=== PATIENT | female | born 1980 | race Caucasian/White ===

== ENCOUNTER 2023-04-26 09:10 | Outpatient (OUT) | payer OTHER, SELFPAY ==
--- NOTE | 2023-04-26 09:18 | MM_ITS ---
Patient Name: ELIZABETH CHAMBERLAIN MR#: [id number] : 1980 Exam Date: 04/26/2023 Ordering Doctor: Non-Staff Physician RADIOLOGY REPORT PROCEDURE: MM TOMOSYNTHESIS SCREENING BI COMPARISON: MG MAMM SCREEN 3D [facility] CAD, 12/23/2020. INDICATIONS: Screening Calculator Name NCI Breast Cancer Risk Assessment Tool 5 Year Breast Cancer Risk 0.60% Lifetime Breast Cancer Risk 8.00% Personal Breast Cancer No Personal Ovarian Cancer No Treatments None Family Cancers Aunt-maternal with breast cancer at age 37; Brother with testicular cancer at age 30; Mother with stomach cancer at age 44. LOCATION: [facility] BREAST COMPOSITION: Heterogeneously dense,which may obscure small masses. FINDINGS: DIAGNOSTIC CATEGORY 2--BENIGN FINDING: RIGHT BREAST: No significant suspicious finding. Scattered benign-appearing lymph nodes are present. No significant change has occurred. LEFT BREAST: No significant suspicious finding. No significant change has occurred. RECOMMENDATIONS: ROUTINE MAMMOGRAM AND CLINICAL EVALUATION IN 12 MONTHS. PLEASE NOTE: A NORMAL MAMMOGRAM DOES NOT EXCLUDE THE POSSIBILITY OF BREAST CANCER. A CLINICALLY SUSPICIOUS PALPABLE LUMP SHOULD BE BIOPSIED. Dictated by: Braydon Sainz M.D. on 04/27/2023 at 12:45 Approved by: Braydon Sainz M.D. on 04/27/2023 at 12:48
== END 2023-04-26 09:11 | disposition home or self-care (01) ==
LOC: MAMMO 09:13
DX: Z12.31 Encounter for screening mammogram for malignant neoplasm of breast (principal); Z80.3 Family history of malignant neoplasm of breast; Z80.43 Family history of malignant neoplasm of testis; Z80.0 Family history of malignant neoplasm of digestive organs
CPT/HCPCS: 77063; 77067

== ENCOUNTER 2023-05-31 10:30 | Outpatient (OUT) | payer MEDICARE, SELFPAY ==
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
[2023-05-31 10:55] LABS: Basophils Absolute Auto 0.1 10^3/uL (0.0-0.1); Basophils Percent Auto 0.9 % (0.2-2.0); Eosinophils Absolute Auto 0.1 10^3/uL (0.0-0.7); Eosinophils Percent Auto 0.9 % (0.9-7.0); Hematocrit 40.1 % (36.0-48.0); Hemoglobin 13.3 g/dL (12.0-16.0); Immature Granulocytes Abs Auto 0.02 10^3/uL (0.00-0.03); Immature Granulocytes Pct Auto 0.3 % (0.0-0.5); Lymphocytes Absolute Auto 2.1 10^3/uL (1.2-3.8); Lymphocytes Percent Auto 29.5 % (20.5-60.0); Mean Corpuscular HGB Conc 33.2 g/dL (29.9-35.2); Mean Corpuscular Hemoglobin 29.4 pg (26.7-34.0); Mean Corpuscular Volume 88.5 fL (81.0-99.0); Mean Platelet Volume 9.2 fL (9.5-13.5); Monocytes Absolute Auto 0.4 10^3/uL (0.3-0.8); Neutrophils Absolute Auto 4.4 10^3/uL (1.4-6.5); Neutrophils Percent Auto 62.4 % (43.0-75.0); Platelet Count 277 10^3/uL (150-450); Red Blood Count 4.53 10^6/uL (4.20-5.40); Red Cell Distribution Width 13.1 % (11.0-15.0); White Blood Count 7.1 10^3/uL (4.0-11.0)
[2023-05-31 11:08] LABS: Estimated Average Glucose 111 mg/dL; Glycohemoglobin A1C 5.5 % (4.5-6.2)
[2023-05-31 11:25] LABS: Alanine Aminotransferase 88 U/L (14-59); Albumin Globulin Ratio 0.9; Albumin Level 3.7 g/dL (3.4-5.0); Alkaline Phosphatase 91 U/L (46-116); Anion Gap 10.1; Aspartate Amino Transferase 36 U/L (15-37); BUN Creatinine Ratio 8.8; Bilirubin Total 0.3 mg/dL (0.2-1.0); Calcium 9.4 mg/dL (8.5-10.1); Carbon Dioxide 28.7 mmol/L (21.0-32.0); Chloride 98 mmol/L (98-107); Chol HDL Ratio 4.6; Cholesterol 251 mg/dL (<=200); Estimated GFR (African America >60 (>=60); Estimated GFR (Non-African Ame >60 (>=60); Free T3 3.12 pg/mL (2.18-3.98); Glucose 98 mg/dL (74-106); HDL Cholesterol 55 mg/dL (40-60); Potassium 3.8 mmol/L (3.5-5.1); Sodium 133 mmol/L (136-145); Thyroid Stimulating Hormone 1.958 uIU/mL (0.358-3.740); Total Protein 7.7 g/dL (6.4-8.2); Triglycerides 133 mg/dL (<=150); VLDL CHOLESTEROL 26.6 mg/dL
[2023-06-01 11:09] LABS: Insulin 16.9 uIU/mL (2.6-24.9)
== END 2023-05-31 10:31 | disposition home or self-care (01) ==
LOC: LAB 10:31
PROVIDERS: Visit Provider Nurse Practitioner Family
DX: Z00.00 Encounter for general adult medical examination without abnormal findings (principal); E78.5 Hyperlipidemia, unspecified; E78.1 Pure hyperglyceridemia; R53.83 Other fatigue
CPT/HCPCS: 36415; 80053; 80061; 82306; 83036; 83525; 83540; 84436; 84443; 84479; 84481; 85025

== ENCOUNTER 2024-06-25 11:16 | Outpatient (OUT) | payer MEDICARE, SELFPAY ==
--- OUTSIDE RECORDS SUMMARY | 2024-06-25 11:34 | XMS_ITS | CCD ---
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 fallopian tube. The serosa is strong-pink and smooth (anterior = blue and posterior = black). There is a strong, smooth ectocervix that surrounds a slit-like os. There is a 3.5 x 1.9 cm endometrial cavity lined by a red, flat mucosa, averaging < 0.1 cm. The myometrium is strong, rubbery, markedly trabeculated and slightly cystic and is up to 2.3 cm. The cervix is lined by strong, flat mucosa. Sectioning of the cervix shows strong, rubbery and cystic cut surfaces with the cystic component up to 1.4 cm and containing yellow to clear mucoid material. A 1.0 cm strong intramural nodule is identified. The nodule shows whorled cut surfaces. Also received within the specimen container is a detached 6.8 cm in length x 0.3 to 0.7 cm in diameter fimbriated fallopian tube. The fallopian tube serosa is pink-red with few paratubal cysts. These cysts are up to 0.8 cm. Sectioning reveals a pinpoint to stellate lumen lined by strong, fibrotic mucosa. 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 quinten Sonia Roselyn/kb2:05/06/20 24 Microscopic Description Microscopic examination performed. Processing Lab: [address] [address] Interpretation Performed at [address] [address] SURGICAL PATHOLOGY CONSULTATION Patient Name: ALISA RODAS [facility] Rec: [id number] [employer] [facility] ANATOMIC PATHOLOGY [address] [place], [place] [address] [facility] DBT Breast - bilateral scree dianagon 04-10-2024 No evidence of malignancy seen in either breast. Advise annual screening mammography. BREAST DENSITY SUMMARY C: The breasts are heterogeneously dense which may obscure small masses. Breast tissue can be either dense or not dense. Dense tissue makes it harder to find breast cancer on a mammogram and also raises the risk of developing breast cancer. Your breast tissue is DENSE. In some people with dense tissue, other imaging tests in addition to mammogram may help find cancers. Talk to your health care provider about breast density, risks for breast cancer, and your individual situation. BI-RADS 1 BIRADS: BIRADS - CATEGORY 1 Negative, no evidence of malignancy. Normal interval follow-up is recommended in 12 months. OVERALL ASSESSMENT - NEGATIVE A letter of notification will be sent to the patient regarding the results. [employer] recommends annual mammograms for women 40 years and older. Performing Facility: [place] [address] [facility] EXAMINATION: SCREENING DIGITAL BILATERAL MAMMOGRAM WITH TOMOSYNTHESIS, 04/10/2024 TECHNIQUE: Screening mammography was performed with tomosynthesis including MLO and CC views of the bilateral breasts. Computer aided detection was used for the interpretation of this exam. COMPARISON: 17 March 2022; 03 December 2020 HISTORY: Screening. Positive family history of breast cancer; aunt after age 40. 2 year history of HRT. No breast interventions. TC score 15.9 FINDINGS: Bilateral breasts are composed of heterogeneously dense parenchyma. No skin thickening, nipple contour changes, suspicious calcifications, suspicious masses, areas of architectural distortion or significant interval changes are noted. [facility] Daysi Carter MD - 04/10/2024 EXAMINATION: SCREENING DIGITAL BILATERAL MAMMOGRAM WITH TOMOSYNTHESIS, 04/10/2024 TECHNIQUE: Screening mammography was performed with tomosynthesis including MLO and CC views of the bilateral breasts. Computer aided detection was used for the interpretation of this exam. COMPARISON: 17 March 2022; 03 December 2020 HISTORY: Screening. Positive family history of breast cancer; aunt after age 40. 2 year history of HRT. No breast interventions. TC score 15.9 FINDINGS: Bilateral breasts are composed of heterogeneously dense parenchyma. No skin thickening, nipple contour changes, suspicious calcifications, suspicious masses, areas of architectural distortion or significant interval changes are noted. IMPRESSION: No evidence of malignancy seen in either breast. Advise annual screening mammography. BREAST DENSITY SUMMARY C: The breasts are heterogeneously dense which may obscure small masses. Breast tissue can be either dense or not dense. Dense tissue makes it harder to find breast cancer on a mammogram and also raises the risk of developing breast cancer. Your breast tissue is DENSE. In some people with dense tissue, other imaging tests in addition to mammogram may help find cancers. Talk to your health care provider about breast density, risks for breast cancer, and your individual situation. BI-RADS 1 BIRADS: BIRADS - CATEGORY 1 Negative, no evidence of malignancy. Normal interval follow-up is recommended in 12 months. OVERALL ASSESSMENT - NEGATIVE A letter of notification will be sent to the patient regarding the results. [employer] recommends annual mammograms for women 40 years and older. Performing Facility: [place] [address] [facility] Radiology Study observation (narrative) [facility] DBT Breast - bilateral scree ningOrdered By: Daysi Luna on 04-10-2024 [facility] Work Phone: [facility] DIGITAL SCREEN BILMik LANDRYBrissa 04-10-2024 [facility] DIGITAL SCREEN BILATERAL EXAMINATION: SCREENING DIGITAL BILATERAL MAMMOGRAM WITH TOMOSYNTHESIS, 04/10/2024 TECHNIQUE: Screening mammography was performed with tomosynthesis including MLO and CC views of the bilateral breasts. Computer aided detection was used for the interpretation of this exam. COMPARISON: 17 March 2022; 03 December 2020 HISTORY: Screening. Positive family history of breast cancer; aunt after age 40. 2 year history of HRT. No breast interventions. TC score 15.9 FINDINGS: Bilateral breasts are composed of heterogeneously dense parenchyma. No skin thickening, nipple contour changes, suspicious calcifications, suspicious masses, areas of architectural distortion or significant interval changes are noted. IMPRESSION: No evidence of malignancy seen in either breast. Advise annual screening mammography. BREAST DENSITY SUMMARY C: The breasts are heterogeneously dense which may obscure small masses. Breast tissue can be either dense or not dense. Dense tissue makes it harder to find breast cancer on a mammogram and also raises the risk of developing breast cancer. Your breast tissue is DENSE. In some people with dense tissue, other imaging tests in addition to mammogram may help find cancers. Talk to your health care provider about breast density, risks for breast cancer, and your individual situation. BI-RADS 1 BIRADS: BIRADS - CATEGORY 1 Negative, no evidence of malignancy. Normal interval follow-up is recommended in 12 months. OVERALL ASSESSMENT - NEGATIVE A letter of notification will be sent to the patient regarding the results. [employer] recommends annual mammograms for women 40 years and older. Performing Facility: [place] [address] Interpreted by: Daysi Luna MD Signed by: Daysi Luna MD 04/10/24 Final result Normal [facility] US NON OB TRANSVAGINALon US NON OB TRANSVAGINAL UTERUS:Anteverted uterus with a heterogeneous echotexture ENDO:Measures 0.6 cm RT. OVARY:Not visualized due to overlying bowel and gas. Transvaginal and transabdominal attempt made. LT. OVARY:Not visualized due to overlying bowel and gas. Transvaginal and transabdominal attempt made. Interpreted by: Noreen Moran DO Signed by: Noreen Moran DO 01/08/24 Final result Normal [facility] DIGITAL SCREEN BILA GRISALofacundo 03-18-2022 No evidence of malignancy. Advise annual screening mammography. BREAST DENSITY SUMMARY C: The breasts are heterogeneously dense which may obscure small masses. BI-RADS 1 BIRADS: BIRADS - CATEGORY 1 Negative, no evidence of malignancy. Normal interval follow-up is recommended in 12 months. OVERALL ASSESSMENT - NEGATIVE A letter of notification will be sent to the patient regarding the results. [employer] recommends annual mammograms for women 40 years and older. [facility]IS CONSOLIDATED EXAMINATION: SCREENING DIGITAL BILATERAL MAMMOGRAM WITH TOMOSYNTHESIS, 03/17/2022 TECHNIQUE: Screening mammography was performed with tomosynthesis including MLO and CC views of the bilateral breasts. Computer aided detection was used for the interpretation of this exam. COMPARISON: 23 December 2020 from [facility] HISTORY: Screening. Positive family history of breast cancer; maternal aunt at age 36. 3 week history of hormonal replacement therapy. No prior breast interventions. FINDINGS: The breast parenchyma is heterogeneously dense which can obscure small masses. No skin thickening, nipple contour changes, suspicious calcifications, suspicious masses, areas of architectural distortion, or significant interval changes are noted. [facility] [place] DIGITAL SCREEN BILA TERALOrdered By: Daysi Luna on 03-18-2022 [employer] Phone: [facility] DIGITAL SCREEN BILA TERALon 03-17-2022 Radiology Study observation (narrative) [employer] Phone: DHEA-SULFATEon 02-01-2022 DHEA-Sulfate 16.6 ug/dL Critically low 57.3-279.2 [facility] Comment on above: Performed By: #### D HEASUL #### [facility] [address] [place] [address] [address] Sully Weaver ESTRADIOLon 02-01-2022 Estradiol 27.5 pg/mL Normal [facility] Comment on above: Result Comment: Adul t Female: Follicular phase 12.5 - 166.0 Ovulation phase 85.8 - 498.0 Luteal phase 43.8 - 211.0 Postmenopausal <6.0 - 54.7 1st trimester 215.0 - >4300.0 Cristi ECLIA methodology Performed By: #### E STRADI #### [facility] [address] [place] [address] Dr. Sully Weaver FSHon 02-01-2022 FSH 33.7 mIU/mL Normal [facility] Comment on above: Result Comment: Adul t Female: Follicular phase 3.5 - 12.5 Ovulation phase 4.7 - 21.5 Luteal phase 1.7 - 7.7 Postmenopausal 25.8 - 134.8 Performed By: #### L BCFSH #### [facility] [address] [place] [address] [address] Sully Weaver INSULINon 02-01-2022 Insulin 20.8 uIU/mL Normal 2.6-24.[address] [facility] Comment on above: Performed By: #### G GAMAL, TSH #### [facility] [address] [place] [address] [address] Sully Weaver LUTEINIZING HORMONE (LH)on 0 02-01-2022 LH 11.0 mIU/mL Normal [facility] Comment on above: Result Comment: Adul t Female: Follicular phase 2.4 - 12.6 Ovulation phase 14.0 - 95.6 Luteal phase 1.0 - 11.4 Postmenopausal 7.7 - 58.5 Performed By: #### G GAMAL, TSH #### [facility] [address] [place] [address] [address] Sully Weaver GLUCOSE BLOODon 01-31-2022 Glucose [Mass/Vol] 92 mg/dL Normal 74-106 [facility] Comment on above: Performed By: #### G GAMAL, TSH #### [facility] [address] [address] [address] Sully Weaver TSHon 01-31-2022 TSH 1.606 uIU/mL Normal 0.358-3.740 [facility] Comment on above: Performed By: #### G GAMAL, TSH #### [facility] [address] [address] [address] Sully Weaver DIRECT LDLon 12-15-2021 Cholesterol in LDL [Mass/Vol] 112 mg/dL Normal [facility] Comment on above: Performed By: #### G GAMAL, TSH #### [facility] [address] [address] [address] Sully Weaver DLDL NORMAL SEE BELOW Normal [facility] Comment on above: Result Comment: <100 mg/dl OPTIMAL 100 - 129 mg/dl NEAR OR ABOVE OPTIMAL 130 - 159 mg/dl BORDERLINE HIGH 160 - 189 mg/dl HIGH >190 mg/dl VERY HIGH Performed By: #### G GAMAL, TSH #### [facility] [address] [address] [address] Sully Weaver LIPID PROFILEon 12-15-2021 CHOL-HDL RATIO NORM SEE BELOW Normal [facility] Comment on above: Result Comment: 3.3 - 4.4 LOW RISK 4.4 - 7.1 AVERAGE RISK 7.1 - 11.0 MODERATE RISK >11.0 HIGH RISK Performed By: #### G GAMAL, TSH #### [facility] [address] [address] [address] Sully Weaver Cholesterol [Mass/Vol] 209 mg/dL Critically high <=[address] [facility] Comment on above: Performed By: #### G GAMAL, TSH #### [facility] [address] [place] [address] Dr. Sully Weaver Cholesterol in HDL [Mass/Vol] 50 mg/dL Normal 40-[address] [facility] Comment on above: Performed By: #### G GAMAL, TSH #### [facility] [address] [place] [address] Dr. Sully Weaver Cholesterol.total/Cho lesterol in HDL [Mass ratio] 4.2 {ratio} Normal [facility] Comment on above: Performed By: #### G GAMAL, TSH #### [facility] [address] [place] [address] Dr. Sully Weaver HDL NORMAL > or = 60 mg/dl - LOW CARDIOVASCULAR RISK <40 mg/dl - HIGH CARDIOVASCULAR RISK Normal [facility] Comment on above: Performed By: #### G GAMAL, TSH #### [facility] [address] [place] [address] Dr. Sully Weaver Triglyceride [Mass/Vol] 412 mg/dL Critically high <=[address] [facility] Comment on above: Performed By: #### G GAMAL, TSH #### [facility] [address] [place] [address] Dr. Sully Weaver PROF 14(COMP METB)on 022 Albumin [Mass/Vol] 3.9 g/dL Normal 3.4-5.0 [facility] Comment on above: Performed By: #### G GAMAL, TSH #### [facility] [address] [place] [address] Dr. Sully Weaver Albumin/Globulin [Mass ratio] 1.1 {ratio} Normal [facility] Comment on above: Performed By: #### G GAMAL, TSH #### [facility] [address] [place] [address] Dr. Sully Weaver ALP [Catalytic activity/Vol] 139 U/L Critically high 46-[address] [facility] Comment on above: Performed By: #### G GAMAL, TSH #### [facility] [address] [place] [address] [address] Sully Weaver ALT [Catalytic activity/Vol] 59 U/L Normal 14-[address] [facility] Comment on above: Performed By: #### G GAMAL, TSH #### [facility] [address] [place] [address] [address] Sully Weaver Anion gap [Moles/Vol] 14.6 mmol/L Normal [facility] Comment on above: Performed By: #### G GAMAL, TSH #### [facility] [address] [address] [address] Sully Weaver AST [Catalytic activity/Vol] 16 U/L Normal 15-[address] [facility] Comment on above: Performed By: #### G GAMAL, TSH #### [facility] [address] [address] [address] Sully Weaver Bilirubin [Mass/Vol] 0.2 mg/dL Normal 0.2-1.[address] [facility] Comment on above: Performed By: #### G GAMAL, TSH #### [facility] [address] [place] [address] Dr. Sully Weaver Calcium [Mass/Vol] 8.7 mg/dL Normal 8.5-10.1 [facility] Comment on above: Performed By: #### G GAMAL, TSH #### [facility] [address] [place] [address] Dr. Sully Weaver Chloride [Moles/Vol] 101 mmol/L Normal 98-[address] [facility] Comment on above: Performed By: #### G GAMAL, TSH #### [facility] [address] [address] [address] Sully Weaver CO2 [Moles/Vol] 26.2 mmol/L Normal 21.0-32.0 [facility] Comment on above: Performed By: #### G GAMAL, TSH #### [facility] [address] [address] [address] Sully Weaver Creatinine [Mass/Vol] 0.89 mg/dL Normal 0.55-1.[address] [facility] Comment on above: Performed By: #### G GAMAL, TSH #### [facility] [address] [address] [address] Sully Weaver EGFR-AF BULGARIAN >60 Normal >=60 [facility] Comment on above: Performed By: #### G GAMAL, TSH #### [facility] [address] [address] [address] Sully Weaver EGFR-NON AF BULGARIAN >60 Normal >=[address] [facility] Comment on above: Performed By: #### G GAMAL, TSH #### [facility] [address] [address] [address] Sully Weaver Globulin (S) [Mass/Vol] 3.6 g/dL Normal [facility] Comment on above: Performed By: #### G GAMAL, TSH #### [facility] [address] [address] [address] Sully Weaver Glucose [Mass/Vol] 80 mg/dL Normal 74-[address] [facility] Comment on above: Performed By: #### G GAMAL, TSH #### [facility] [address] [address] [address] Sully Weaver Potassium [Moles/Vol] 3.8 mmol/L Normal 3.5-5.[address] [facility] Comment on above: Performed By: #### G GAMAL, TSH #### [facility] [address] [address] [address] Sully Weaver Protein [Mass/Vol] 7.5 g/dL Normal 6.4-8.[address] [facility] Comment on above: Performed By: #### G GAMAL, TSH #### [facility] [address] [address] [address] Sully Weaver Sodium [Moles/Vol] 138 mmol/L Normal 136-[address] [facility] Comment on above: Performed By: #### G GAMAL, TSH #### [facility] [address] [address] [address] Sully Weaver Urea nitrogen [Mass/Vol] 11.0 mg/dL Normal 7.0-18.[address] [facility] Comment on above: Performed By: #### G GAMAL, TSH #### [facility] [address] [address] [address] Sully Weaver Urea nitrogen/Creatinine [Mass ratio] 12.4 mg/mg Normal [facility] Comment on above: Performed By: #### G GAMAL, TSH #### [facility] [address] [place] [address] Dr. Sully Weaver INSULINon 09-07-2021 Insulin 10.4 uIU/mL Normal 2.6-24.9 [facility] Comment on above: Performed By: #### G GAMAL, TSH #### [facility] [address] [place] [address] Dr. Sully Weaver CBC AUTO DIFFon 09-06-2021 BASO # 0.0 103/ul Normal 0.0-0.1 [facility] Comment on above: Performed By: #### C BC #### [facility] [address] [place] [address] Dr. Sully Weaver Basophils/100 WBC (Bld) 0.5 % Normal 0.2-2.[address] [facility] Comment on above: Performed By: #### C BC #### [facility] [address] [place] [address] Dr. Sully Weaver EO # 0.0 103/ul Normal 0.0-0.7 [facility] Comment on above: Performed By: #### C BC #### [facility] [address] [place] [address] Dr. Sully Weaver Eosinophils/100 WBC (Bld) 0.5 % Critically low 0.9-7.0 [facility] Comment on above: Performed By: #### C BC #### [facility] [address] [place] [address] Dr. Sully Weaver Erythrocyte distribution width (RBC) [Ratio] 12.4 % Normal 11.0-15.0 [facility] Comment on above: Performed By: #### C BC #### [facility] [address] [place] [address] Dr. Sully Weaver Hematocrit (Bld) [Volume fraction] 36.3 % Normal 36.0-48.[address] [facility] Comment on above: Performed By: #### C BC #### [facility] [address] [place] [address] Dr. Sully Weaver Hemoglobin (Bld) [Mass/Vol] 12.2 g/dL Normal 12.0-16.[address] [facility] Comment on above: Performed By: #### C BC #### [facility] [address] [place] [address] Dr. Sully Weaver IG # 0.01 10e3/ul Normal 0.00-0.[address] [facility] Comment on above: Performed By: #### C BC #### [facility] [address] [place] [address] Dr. Sully Weaver IG % 0.2 % Normal 0.0-0.[address] [facility] Comment on above: Performed By: #### C BC #### [facility] [address] [place] [address] Dr. Sully Weaver LYMPH # 2.2 103/ul Normal 1.2-3.8 [facility] Comment on above: Performed By: #### C BC #### [facility] [address] [place] [address] Dr. Sully Weaver Lymphocytes/100 WBC (Bld) 39.7 % Normal 20.5-60.[address] [facility] Comment on above: Performed By: #### C BC #### [facility] [address] [place] [address] Dr. uSlly Weaver MANUAL DIFF REQ NO Normal [facility] Comment on above: Performed By: #### C BC #### [facility] [address] [place] [address] Dr. Sully Weaver MCH (RBC) [Entitic mass] 30.5 pg Normal 26.7-34.[address] [facility] Comment on above: Performed By: #### C BC #### [facility] [address] [place] [address] Dr. Sully Weaver MCHC (RBC) [Mass/Vol] 33.6 g/dL Normal 29.9-35.2 [facility] Comment on above: Performed By: #### C BC #### [facility] [address] [place] [address] Dr. Sully Weaver MCV (RBC) [Entitic vol] 90.8 fL Normal 81.0-99.0 [facility] Comment on above: Performed By: #### C BC #### [facility] [address] [place] [address] Dr. Sully Weaver MONO # 0.3 103/ul Normal 0.3-0.8 [facility] Comment on above: Performed By: #### C BC #### [facility] [address] [place] [address] Dr. Sully Weaver Monocytes/100 WBC (Bld) 5.1 % Normal 1.7-12.0 [facility] Comment on above: Performed By: #### C BC #### [facility] [address] [place] [address] Dr. Sully Weaver NEUT # 3.0 103/ul Normal 1.4-6.5 [facility] Comment on above: Performed By: #### C BC #### [facility] [address] [place] [address] Dr. Sully Weaver Neutrophils/100 WBC (Bld) 54.0 % Normal 43.0-75.0 [facility] Comment on above: Performed By: #### C BC #### [facility] [address] [place] [address] Dr. Sully Weaver Platelet mean volume (Bld) [Entitic vol] 9.3 fL Critically low 9.5-13.5 [facility] Comment on above: Performed By: #### C BC #### [facility] [address] [place] [address] Dr. Sully Weaver PLT 300 103/ul Normal 150-450 [facility] Comment on above: Performed By: #### C BC #### [facility] [address] [place] [address] Dr. Sully Weaver RBC 4.00 106/ul Critically low 4.20-5.40 [facility] Comment on above: Performed By: #### C BC #### [facility] [address] [place] [address] Dr. Sully Weaver WBC 5.5 103/ul Normal 4.0-11.[address] [facility] Comment on above: Performed By: #### C BC #### [facility] [address] [address] [address] Sully Weaver FREE THYROXINE INDEX T7on FTI 2.[address] [facility] Comment on above: Performed By: #### G GAMAL, TSH #### [facility] [address] [address] [address] Sully Weaver T3U 31.0 % Normal 23.5-40.[address] [facility] Comment on above: Performed By: #### G GAMAL, TSH #### [facility] [address] [address] [address] Sully Weaver T4 [Mass/Vol] 8.30 ug/dL Normal 5.53-11.00 [facility] Comment on above: Performed By: #### G GAMAL, TSH #### [facility] [address] [address] [address] Sully Weaver GLYCOHEMOGLOBIN A1Con 2021 ADA RECOMMENDATION ADA THERAPEUTIC TARGET 6.0 - 7.0 ACTION SUGGESTED > 7.[address] [facility] Comment on above: Performed By: #### G GAMAL, TSH #### [facility] [address] [place] [address] Dr. Sully Weaver Glucose [Mass/Vol] 111 mg/dL Normal [facility] Comment on above: Performed By: #### G GAMAL, TSH #### [facility] [address] [address] [address] Sully Weaver HbA1c (Bld) [Mass fraction] 5.5 % Normal <=6.[address] [facility] Comment on above: Performed By: #### G GAMAL, TSH #### [facility] [address] [place] [address] Dr. Sully Weaver IRONon 09-06-2021 Iron [Mass/Vol] 81.0 ug/dL Normal 37.0-170.0 [facility] Comment on above: Performed By: #### I GLENN #### [facility] [address] [place], [place] [id number] Dr. Sully Weaver LIPID PROFILEon 09-06-2021 CHOL-HDL RATIO NORM SEE BELOW Normal [facility] Comment on above: Result Comment: 3.3 - 4.4 LOW RISK 4.4 - 7.1 AVERAGE RISK 7.1 - 11.0 MODERATE RISK >11.0 HIGH RISK Performed By: #### C MP, LIPID, TSH #### [facility] [address] [address] [address] Sully Weaver Cholesterol [Mass/Vol] 233 mg/dL Critically high <=[address] [facility] Comment on above: Performed By: #### C MP, LIPID, TSH #### [facility] [address] [place] [address] Dr. Sully Weaver Cholesterol in HDL [Mass/Vol] 52 mg/dL Normal 40-[address] [facility] Comment on above: Performed By: #### C MP, LIPID, TSH #### [facility] [address] [place] [address] Dr. Sully Weaver Cholesterol in LDL [Mass/Vol] 151.6 mg/dL Normal [facility] Comment on above: Performed By: #### C MP, LIPID, TSH #### [facility] [address] [place] [address] Dr. Sully Weaver Cholesterol.total/Cho lesterol in HDL [Mass ratio] 4.5 {ratio} Normal [facility] Comment on above: Performed By: #### C MP, LIPID, TSH #### [facility] [address] [place] [address] Dr. Sully Weaver HDL NORMAL > or = 60 mg/dl - LOW CARDIOVASCULAR RISK <40 mg/dl - HIGH CARDIOVASCULAR RISK Normal [facility] Comment on above: Performed By: #### C MP, LIPID, TSH #### [facility] [address] [place] [address] Dr. Sully Weaver LDL CALC NORMAL SEE BELOW Normal [facility] Comment on above: Result Comment: <100 mg/dl OPTIMAL 100 - 129 mg/dl NEAR OR ABOVE OPTIMAL 130 - 159 mg/dl BORDERLINE HIGH 160 - 189 mg/dl HIGH >190 mg/dl VERY HIGH Performed By: #### C MP, LIPID, TSH #### [facility] [address] [address] [address] Sully Weaver Triglyceride [Mass/Vol] 147 mg/dL Normal <=[address] [facility] Comment on above: Performed By: #### C MP, LIPID, TSH #### [facility] [address] [address] [address] Sully Weaver VLDL CALC 29.4 mg/dL Normal [facility] Comment on above: Performed By: #### C MP, LIPID, TSH #### [facility] [address] [address] [address] Sully Weaver PROF 14(COMP METB)on 022 Albumin [Mass/Vol] 3.9 g/dL Normal 3.4-5.0 [facility] Comment on above: Performed By: #### C MP, LIPID, TSH #### [facility] [address] [place] [address] Dr. Sully Weaver Albumin/Globulin [Mass ratio] 1.1 {ratio} Normal [facility] Comment on above: Performed By: #### C MP, LIPID, TSH #### [facility] [address] [place] [address] Dr. Sully Weaver ALP [Catalytic activity/Vol] 80 U/L Normal 46-[address] [facility] Comment on above: Performed By: #### C MP, LIPID, TSH #### [facility] [address] [address] [address] Sully Weaver ALT [Catalytic activity/Vol] 40 U/L Normal 14-[address] [facility] Comment on above: Performed By: #### C MP, LIPID, TSH #### [facility] [address] [address] [address] Sully Weaver Anion gap [Moles/Vol] 13.9 mmol/L Normal [facility] Comment on above: Performed By: #### C MP, LIPID, TSH #### [facility] [address] [place] [address] Dr. Sully Weaver AST [Catalytic activity/Vol] 20 U/L Normal 15-[address] [facility] Comment on above: Performed By: #### C MP, LIPID, TSH #### [facility] [address] [address] [address] Sully Weaver Bilirubin [Mass/Vol] 0.4 mg/dL Normal 0.2-1.[address] [facility] Comment on above: Performed By: #### C MP, LIPID, TSH #### [facility] [address] [address] [address] Sully Weaver Calcium [Mass/Vol] 8.7 mg/dL Normal 8.5-10.1 [facility] Comment on above: Performed By: #### C MP, LIPID, TSH #### [facility] [address] [address] [address] Sully Weaver Chloride [Moles/Vol] 101 mmol/L Normal 98-[address] [facility] Comment on above: Performed By: #### C MP, LIPID, TSH #### [facility] [address] [place] [address] Dr. Sully Weaver CO2 [Moles/Vol] 25.3 mmol/L Normal 22.0-30.0 [facility] Comment on above: Performed By: #### C MP, LIPID, TSH #### [facility] [address] [place] [address] Dr. Sully Weaver Creatinine [Mass/Vol] 0.69 mg/dL Normal 0.52-1.[address] [facility] Comment on above: Performed By: #### C MP, LIPID, TSH #### [facility] [address] [place] [address] Dr. Sully Weaver EGFR-AF BULGARIAN >60 Normal >=60 [facility] Comment on above: Performed By: #### C MP, LIPID, TSH #### [facility] [address] [place] [address] Dr. Sully Weaver EGFR-NON AF BULGARIAN >60 Normal >=[address] [facility] Comment on above: Performed By: #### C MP, LIPID, TSH #### [facility] [address] [place] [address] Dr. Sully Weaver Globulin (S) [Mass/Vol] 3.6 g/dL Normal [facility] Comment on above: Performed By: #### C MP, LIPID, TSH #### [facility] [address] [place] [address] Dr. Sully Weaver Glucose [Mass/Vol] 95 mg/dL Normal 74-106 [facility] Comment on above: Performed By: #### C MP, LIPID, TSH #### [facility] [address] [place] [address] Dr. Sully Weaver Potassium [Moles/Vol] 4.2 mmol/L Normal 3.4-5.[address] [facility] Comment on above: Performed By: #### C MP, LIPID, TSH #### [facility] [address] [place] [address] Dr. Sully Weaver Protein [Mass/Vol] 7.5 g/dL Normal 6.1-8.2 [facility] Comment on above: Performed By: #### C MP, LIPID, TSH #### [facility] [address] [place] [address] Dr. Sully Weaver Sodium [Moles/Vol] 136 mmol/L Critically low 137-145 [facility] Comment on above: Performed By: #### C MP, LIPID, TSH #### [facility] [address] [place] [address] Dr. Sully Weaver Urea nitrogen [Mass/Vol] 9.0 mg/dL Normal 7.0-18.[address] [facility] Comment on above: Performed By: #### C MP, LIPID, TSH #### [facility] [address] [place] [address] Dr. Sully Weaver Urea nitrogen/Creatinine [Mass ratio] 13.0 mg/mg Normal [facility] Comment on above: Performed By: #### C MP, LIPID, TSH #### [facility] [address] [place] [address] Dr. Sully Weaver TSHon 09-06-2021 TSH 1.381 uIU/mL Normal 0.470-4.680 [facility] Comment on above: Performed By: #### C MP, LIPID, TSH #### [facility] [address] [place], [place] [address] Dr. Sully Weaver TSH RANGE SEE BELOW Normal [facility] Comment on above: Result Comment: <0.3 4 UIU/ml HYPERTHYROID 0.34-5.60 UIU/ml EUTHYROID >5.60 UIU/ml HYPOTHYROID Performed By: #### C MP, LIPID, TSH #### [facility] [address] [place], [place] [address] Dr. Sully Weaver Vital Signs Date Time Vital Sign Value Performing Clinician Facility 05-05-2024 16:30-0500 Diastolic blood pressure 63 mm[Hg] Noreen Rojasy Rizvi DO Work Phone: [employer] 05-05-2024 16:30-0500 Heart rate 96 /min Noreen Rojasy Rizvi DO Work Phone: [employer] 05-05-2024 16:30-0500 Respiratory rate 18 /min Noreen Rojasy Rizvi DO Work Phone: [employer] 05-05-2024 16:30-0500 SaO2% (BldA) [Mass fraction] 96 % Noreen Rojasy Rizvi DO Work Phone: [employer] 05-05-2024 16:30-0500 Systolic blood pressure 122 mm[Hg] Noreen Rojasy Rizvi DO Work Phone: [facility] 05-05-2024 15:39-0500 Body temperature 97 [degF] Noreen Rojasy Rizvi DO Work Phone: [employer] 05-05-2024 10:42-0500 Body mass index (BMI) [Ratio] 31.73 kg/m2 Noreen Riky Rizvi DO Work Phone: [employer] 05-05-2024 10:42-0500 Body weight 91.9 kg Noreen Rojasy Rizvi DO Work Phone: [employer] 04-30-2024 12:52-0500 Body height 170.2 cm Noreen Riky Rizvi DO Work Phone: [facility] 04-10-2024 16:03-0500 Body height 170.2 cm [facility] 06-29-2022 12:20-0500 Body height Figueroa Manning Other [employer] Other 06-29-2022 12:20-0500 Body mass index (BMI) [Ratio] 28.97 kg/m2 Figueroa Manning Other [employer] Other 06-29-2022 12:20-0500 Body weight 83.92 kg Figueroa Manning Other [employer] Other 05-25-2022 14:40-0500 Body height Figueroa Manning Other [employer] Other 05-25-2022 14:40-0500 Body mass index (BMI) [Ratio] 28.97 kg/m2 Figueroa Manning Other [employer] Other 05-25-2022 14:40-0500 Body weight 83.92 kg Figueroa Manning Other [employer] Other 12-22-2021 16:40-0400 Body height Figueroa Manning Other [employer] Other 06-28-2021 12:40-0500 Body height Figueroa Manning Other [employer] Other 06-28-2021 12:40-0500 Body mass index (BMI) [Ratio] 29.13 kg/m2 Figueroa Manning Other [employer] Other 06-28-2021 12:40-0500 Body weight 84.37 kg Figueroa Manning Other [employer] Other Encounters Encounter Date Encounter Type Care Provider Facility Start: 06-13-2024 End: 06-13-2024 Patient encounter procedure Suze Hindsmer LUMBER RACKER-C Work Phone: [facility] Work Phone: Start: 06-13-2024 End: 06-13-2024 ambulatory Suze Saldaña [employer]ER-C Work Phone: [facility] Work Phone: Start: 05-05-2024 End: 05-05-[address] [facility] Start: 05-05-2024 End: 05-05-2024 Subsequent hospital visit by physician Noreen Rizvi DO Work Phone: [facility] Comment on above: Postoperative pain ( Primary Dx); Pelvic pain Start: 04-10-2024 End: 04-12-[address] [facility] Start: 04-10-2024 End: 04-12-2024 Subsequent hospital visit by physician [facility] Comment on above: Visit for screening mammogram Start: 01-08-2024 End: 01-08-2024 ambulatory SUZE Benjamin PIPER [facility] Start: 06-29-2022 End: 06-29-2022 ambulatory Figueroa Manning Other [facility] [employer] Other Start: 06-29-2022 Office outpatient vi sit 15 minutes Figueroa Manning [facility] Start: 06-27-2022 End: 06-27-2022 ambulatory [employer]ACK[employer]-C Suze Lisa Piper Work Phone: [facility] Work Phone: Start: 06-27-2022 End: 06-27-2022 Patient encounter procedure LUM[employer] RACKER-C Suze Saldaña Work Phone: [facility] Work Phone: Start: 05-25-2022 End: 05-25-2022 ambulatory Figueroa Manning Other [employer] Other Start: 05-25-2022 Office outpatient vi sit 15 minutes Figueroa Manning [facility] Start: 03-17-2022 End: 03-19-2022 Subsequent hospital visit by physician [facility] Comment on above: Visit for screening mammogram Start: 01-31-2022 End: 02-01-2022 ambulatory NOREEN BURROUGHS Facility:[facility] Start: 12-22-2021 End: 12-22-2021 ambulatory Figueroa Manning Other [employer] Other Start: 12-22-2021 Office outpatient vi sit 15 minutes Figueroa Manning [facility] Start: 12-21-2021 End: 12-21-2021 Patient encounter procedure LUM[employer] RACKER-C Suze Saldaña Work Phone: [facility] Start: 12-15-2021 End: 12-16-2021 ambulatory SUZE SALDAÑA Facility:[facility] Start: 09-06-2021 End: 09-07-2021 ambulatory SUZE SALDAÑA Facility:[facility] Start: 06-28-2021 End: 06-28-2021 ambulatory Figueroa Nigel Other [employer] Other Start: 06-28-2021 Office outpatient vi sit 15 minutes Figueroa Manning [facility] Procedures Date Procedure Procedure Detail Performing Clinician Start: 06-13-2024 X-ray of cervical spine Suze Saldaña [employer]-C Work Phone: Start: 06-13-2024 X-ray of lumbar spin e, four views Suze Saldaña [employer]-C Work Phone: Start: 05-05-2024 Urine test visual color cmprsn meths Noreen Rizvi DO Work Phone: Start: 04-10-2024 Screening mammograph y bi 2-view breast inc cad Noreen Rizvi DO Work Phone: Start: 06-27-2022 X-ray of cervical spine LUMBER RACKER-Garrett Saldaña Work Phone: Start: 06-27-2022 X-ray of lumbar spin e, four views LUM[employer] RACKER-Garrett Saldaña Work Phone: Start: 03-17-2022 Screening mammograph y bi 2-view breast inc cad Noreen Rizvi DO Work Phone: Start: 01-10-2022 Microscopic observat ion [Identifier] in Cervix by Cyto stain [facility] Start: 12-21-2021 X-ray of cervical spine LUMBER RACKER-Garrtet Saldaña Work Phone: Start: 12-21-2021 X-ray of lumbar spin e, four views LUM[employer] RACKER-Garrett Saldaña Work Phone: Plan of Treatment Date Care Activity Detail Author Start: 11-16-2031 DTaP/Tdap/Td vaccine (2 - Td or Tdap) DTaP/Tdap/Td vaccine (2 - Td or Tdap) [facility] Start: 01-10-2027 Screening for malign ant neoplasm of cervix [facility] Start: 04-10-2026 Screening for malign ant neoplasm of breast Breast cancer screen [facility] Start: 04-19-2025 Depression Screen Depression Screen [facility] Start: 01-10-2025 Screening for malign ant neoplasm of cervix Pap smear [facility] Start: 06-17-2024 End: 06-17-2024 Patient encounter procedure 06/17/2024 11:30 AM EST Office Visit [facility] Part [address] [place] [address] Noreen Moran, [address] [place] [address] PO/Schedule yearly and order [facility] Part [facility] Comment on above: PO/Schedule yearly a nd order [facility] Start: 05-14-2024 End: 05-14-2024 Patient encounter procedure 05/14/2024 11:30 AM EST Office Visit [facility] [address] [place] [address] Kenzie Grady PA-C [address] [place] [address] PO [facility] Comment on above: PO Start: 05-05-2024 End: 05-05-2024 Laps total hysterect 250 gm/< w/rmvl tube/ovary HYSTERECTOMY VAGINAL LAPAROSCOPIC ROBOTIC ASSISTED Pelvic pain 05/05/2024 1:10 PM [facility] Start: 05-05-2024 End: 05-05-2024 Admission to same day surgery center 05/05/2024 11:50 AM EST - 05/05/2024 1:50 PM EST Surgery [facility] [address] [place] [id number] Noreen Moran, DO [address] [place] [address] HYSTERECTOMY VAGINAL LAPAROSCOPIC ROBOTIC ASSISTED- POSS TAYLOR SALPINGECTOMY LAP, POSS LAP COLPOPEXY [facility] Comment on above: HYSTERECTOMY VAGINAL LAPAROSCOPIC ROBOTIC ASSISTED- POSS TAYLOR SALPINGECTOMY LAP, POSS LAP COLPOPEXY Start: 05-05-2024 End: 05-05-2024 Laps total hysterect 250 gm/< w/rmvl tube/ovary HYSTERECTOMY VAGINAL LAPAROSCOPIC ROBOTIC ASSISTED Pelvic pain 05/05/2024 11:50 AM [facility] Start: 05-05-2024 Subsequent hospital visit by physician 05/05/2024 11:50 AM EST Hospital Encounter [facility] [address] [place] [id number] Noreen Moran, DO [address] [place] [address] [facility] Start: 04-22-2024 End: 04-22-2024 Patient encounter procedure 04/22/2024 11:30 AM EST Office Visit [facility] [address] [place] [address] Noreen Moran DO [address] [place] [address] [facility] Comment on above: OLGA LIDIA Start: 01-27-2024 COVID-19 Vaccine ( season) COVID-19 Vaccine ( season) [facility] Start: 01-07-2024 Annual Wellness Visi t (Medicare) Annual Wellness Visit (Medicare) [facility] Start: 12-27-2023 Influenza vaccination Flu vaccine (# 1) [facility] Start: 01-16-2023 End: 01-16-2023 Patient encounter procedure 01/16/2023 Office Visit Obstetrics and Gynecology Noreen Moran DO [address] [place] [address] [facility] Start: 12-26-2021 Influenza vaccination Flu vaccine (# 1) [facility] Start: 05-18-2021 COVID-19 Vaccine (3 - Booster for Pfizer series) COVID-19 Vaccine (3 - Booster for Pfizer series) [facility] Start: 2020 Lipid panel Lipids [facility] [employer] Start: 2015 Diabetes screen Diabetes screen [facility] Start: 1999 Hepatitis B vaccine (1 of 3 - 19+ 3-dose series) Hepatitis B vaccine (1 of 3 - 19+ 3-dose series) [facility] Start: 1998 Hepatitis C screening Hepatitis C sc reen [facility] Start: 1995 HIV screening HIV screen [facility] Start: 1993 Varicella vaccine (1 of 2 - 13+ 2-dose series) Varicella vaccine (1 of 2 - 13+ 2-dose series) [facility] Start: 1992 Depression Screen Depression Screen [facility] Start: 1981 Varicella vaccine (1 of 2 - 2-dose childhood series) Varicella vaccine (1 of 2 - 2-dose childhood series) [facility] [employer] End: 05-05-2024 INITIATE PACU OXYGEN THERAPY PROTOCOL Initiate PACU Oxygen Therapy Protocol Respiratory Care Routine Continuous until discontinued starting 05/05/2024 [facility] Comment on above: Continuous until dis continued starting 05/05/2024 Oxygen therapy [[facility] Data Set] Initiate Oxygen Therapy Protocol Respiratory Care Routine As Needed until discontinued starting 05/05/2024 [facility] Comment on above: As Needed until disc ontinued starting 05/05/2024 Pathology study Surgical Patholo gy Lab Routine Pelvic pain Release Upon Ordering for 1 Occurrences starting 05/05/2024 [facility] Comment on above: Release Upon Orderin g for 1 Occurrences starting 05/05/2024 End: 05-05-2024 , urine POCT , urine POCT Point of Care Testing STAT One Time for 1 Occurrences starting 05/05/2024 until 05/05/2024 [facility] Comment on above: One Time for 1 Occur rences starting 05/05/2024 until 05/05/2024 Immunizations Immunization Date Immunization Notes Care Provider Sanju llanos 11-15-2021 tetanus toxoid, redu daniella diphtheria toxoid, and acellular pertussis vaccine, adsorbed Mth Mt [facility] [employer] Payers Date Payer Category Payer Private Health Insurance [id number] 2024 Self-pay [id number] 2023 Medicare [id number] 2022 Unknown [facility] ADV [id number] 2022-Present [address] [place] [address] [id number] 1980 Unknown [id number] 93 1980 Unknown [id number] 93 1980 Unknown [id number] 93 1980 Unknown [id number] 73 1980 Unknown [id number] 73 1980 Unknown [id number] 75 1959 Medicare [id number] Medicare [id number] Medicare Medicare [id number] Unknown [employer] BC/BS [id number] Unknown Regular Auto/Liability [id number] Unknown [id number] 31 Social History Date Type Detail Facility Start: 04-10-2024 End: 05-05-2024 Sex Assigned At [employer] Start: 05-01-2018 End: 05-01-2018 Tobacco smoking status NYIS Smoker (finding) [facility] Start: 1980 Sex Assigned At Female F [facility] Start: 01-10-2022 Tobacco smoking stat [facility] Never smoked tobacco [employer] Start: 01-10-2022 Tobacco use and exposure Smoke less tobacco non-user [employer] Work Phone: Start: 03-17-2022 End: 05-05-2024 Alcohol intake Current drinker of alcohol (finding) [employer] Work Phone: Start: 1980 Sex Assigned At Not on file B ON [employer] Phone: Start: 04-10-2024 End: 05-05-2024 History of Social function [employer] Patient Health Questionnaire 9 item (PHQ-9) total score [Reported] 0 [employer] At any time in the p ast 12 months, were you homeless or living in [facility] [including now]? No [employer] Start: 05-05-2024 Alcohol Comment social [employer] Start: 06-14-2024 Sex Female (finding) [facility] Medical Equipment Procedure Code Equipment Code Equipment [...] X 45MM CAPLOX II FDA Start: 05-01-2018 Clinical Notes 04-27-2018 to 05-05-2024 Marilynn Hermosillo RN - 05/05/2024 4:39 PM Christina Emerson RN - 04/30/2024 1:02 PM ESTDischarge Instructions Note Date & Type Note Facility 05-05-2024 History of Presen t illness Narrative Discharge Criteria Inpatients must meet Criteria 1 through 7. All other patients are either YES or N/A. If a NO is chosen then Anesthesia or Surgeon must be notified. 1. Minimum 30 minutes after last dose of sedative medication. Yes 2. Systolic BP between 90 - 160. Diastolic BP between 60 - 90. Yes 3. Pulse between 60 - 120 Yes 4. Respirations between 8 - 25. Yes 5. SpO2 92% - 100%. Yes 6. Able to cough and swallow or return to baseline function. Yes 7. Alert and oriented or return to baseline mental status. Yes 8. Demonstrates controlled, coordinated movements, ambulates with steady gait, or return to baseline activity function. Yes 9. Minimal or no pain or nausea, or at a level tolerable and acceptable to patient. Yes 10. Takes and retains oral fluids as allowed. Yes 11. Procedural / perioperative site stable. Minimal or no bleeding. Yes 12. If GI endoscopy procedure, minimal or no abdominal distention or passing flatus. N/A 13. Written discharge instructions and emergency telephone number provided. Yes 14. Accompanied by a responsible adult. Yes Patient instructed on the pre-operative, intra-operative, and post-operative process. Patient instructed on NPO status. Medication instructions and pre operative instruction sheet reviewed with the patient. CHG skin prep instructions reviewed with patient. documented in this encounter [facility] 05-05-2024 Hospital Discharg e instructions Kenzie Grady PA-C - 05/05/2024 11:43 AM EST SAME DAY SURGERY DISCHARGE INSTRUCTIONS 1. Do not drive or operate hazardous machinery for 24 hours. 2. Do not make important personal or business decisions for 24 hours. 3. Do not drink alcoholic beverages for 24 hours. 4. Do not smoke tobacco products for 24 hours. 5. Patient should not be left alone for 12-24 hours following surgical procedure. 6. Eat light foods (Jell-O, soups, etc....) and drink plenty of fluids (water, Sprite, etc...) up to 8 glasses per day, as you can tolerate. 7. If your bandages become soaked with bright red blood, place another dressing pad over your bandages. (DO NOT remove original bandage.) Call your surgeon for further instructions. A small amount of bright red blood is to be expected. 8. Wash hands before and after incision care. It is important to practice good personal hygiene during the post op period. 9. You may remove your dressing the morning following surgery; leave the steri-strips in place, they will fall off on their own. If they have not fallen off in 7-10 days, please remove them. 10. If no drainage from incisions you may shower. 11. Limit your activities for 24 hours. Do not engage in heavy work until your surgeon gives you permission. DO NOT lift anything heavier than 10 pounds. You may go up & down stairs and do any activity that can be done comfortably. 12. Report the following signs or any questions regarding your physical condition to your surgeon immediately: Excessive swelling of, or around the wound area. Redness or pus-like drainage Temperature of 100 degrees (F) or above. Excessive pain. If unable to urinate 4 hours after surgery. If bleeding at surgery site continues after 5-10 minutes of pressure. 13. Pain Control: Take pain meds as prescribed. You may use over the counter meds like Acetaminophen or Ibuprofen if not part of the meds already prescribed. While on narcotic pain meds DO NOT drive, operate machinery or make business decisions. 14. Try to avoid constipation (no bowel movement) by using over the counter Colace once or twice daily and increasing your fluid intake. Please call if no bowel movement after increasing fluid intake, use of Milk of Magnesia, Pericolace (laxative) or Dulcolax suppositories. 15. No sexual activity, tampons, douches, sitting in hot tubs/saunas or swimming in pools/ponds for 6 weeks or until cleared by your surgeon. 16. Call your surgeon for any questions regarding your surgery. 17. Call for an appointment to see ANGI Drew in [address] Burroughs -- [place] office [phone] [place] office [phone] documented in this encounter [facility] 06-29-2022 Evaluation note Encounter Date Diagnosis Assessment [...] xrays Jun, Cervical myelopathy (ICD-10 - G95.9) [facility] Other 12-29-2022 Evaluation note* Encounter Date Diagnosis Assessment Notes Treatment Notes Treatment Clinical Notes Apr, S/P lumbar spinal fusion (ICD-10 [...] she could expect if new problem arises. [facility] Other 07-28-2022 Evaluation note* Encounter Date Diagnosis Assessment Notes Treatment Notes Treatment Clinical Notes Nov, Neck pain (ICD-10 - M54.2) [...] of cervical spinal arthrodesis (ICD-10 - Z98.1) [facility] Other 07-21-2022 NotePROCEDURE: XR TIB_FIB LT 2V COMPARISON: None. HISTORY: Infection of skin AND/OR subcutaneous tissue FINDINGS: BONES:No fracture, acute abnormality, or significant arthropathy. SOFT TISSUES:Anterior soft tissue swelling proximal lower leg. No radiopaque foreign body EFFUSION:None visible. OTHER: Negative. IMPRESSION: Soft tissue swelling. No bony abnormality Electronically authenticated by: FLORENCIA LOYOLA Date: 2021-12-15 16:52[facility]02-01-2022 Evaluation note* Encounter Date Diagnosis Assessment Notes Treatment Notes Treatment Clinical Notes Jun, Spondylolisthesis of lumbar region (ICD-10 [...] of both sacroiliac joints (ICD-10 - M46.1) [facility] Other 12-01-2018 History general Narrative - Reported* Type Description Date Surgical History PLIF L4-5 L5-S1- Dr. Manning 04/28 018 Hospitalization History See Sx Hx [facility] Other evaluation noteNo assessment information available [facility] Work Phone: Evaluation note* Diagnosis Visit for screening mammogram Other screening mammogram documented in this encounter [facility] Work Phone: evaluation note* Diagnosis Visit for screening mammogram Other screening mammogram Pelvic pain documented in this encounter [facility]Evaluation note* Diagnosis Postoperative pain- Primary Other acute postoperative pain Pelvic pain documented in this encounter [facility] Reason for Referral Reason Evaluate and Tr eat Diagnosis 1 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 Wells William Referred Address [address] [facility],[place], [place],[address] Referred Provider Specialty Pain Medicin e Referral Priority Routine General Notes Isabel Rai 022 11:24:36 AM >Received today. Waiting for office notes to be locked before sending referral Specialty Diagnoses / Procedures Referred By Susan cast Referred To Contact Radiology Diagnoses Visit for screening mammogram Procedures XANDER UNRULY DIGITAL SCREEN BILATERAL Noreen Moran F, DO [address] [place] [address] Referral ID Status Reason Start Date Expiration Date Visits Re quested Visits Authorized [id number] Closed 01/10/2022 01/10/2023 1 1 Chief Complaint and Reason for Visit Chief Complaint m50.20 Chief Complaint m51.16 m43.16 m48.06 2 Chief Complaint Admit Date m54.50 m54.2 June 13, 2024 3 :29pm Advance Directives No Advanced Directives Records Found Advance Directive Response Recorded Date/ Time Advance Directives No January 20, 2017 12:13pm Latest Code Status on File Code Status Date Activated Date Inactivated Comments Full Code 11/16/2021 12:26 AM 11/16/2021 6:25 PM Advance Directive Response Recorded Date/ Time Advance Directives No January 20, 2017 11:13am Date Activated Date Inactivated Comments 11/16/2021 12:26 AM 11/16/2021 6:25 PM Date Activated Date Inactivated Comments 05/05/2024 10:31 AM Date Activated Date Inactivated Comments 11/16/2021 12:26 AM 11/16/2021 6:25 PM Summary Purpose Family History No Family History Records FoundNo Family History Records FoundNo Family History Records FoundNo Family History Records Found Additional Source Comments REASON FOR VISIT (unrecogniz ed section and content) Specialty Diagnoses / Procedures Referred By Susan cast Referred To Contact Radiology Diagnoses Visit for screening mammogram Procedures XANDER UNRULY DIGITAL SCREEN BILATERAL Noreen Moran, DO [address] [place] [id number] Referral ID Status Reason Start Date Expiration Date Visits Re quested Visits Authorized [id number] Closed 01/10/2022 01/10/2023 1 1 Specialty Diagnoses / Procedures Referred By Contac t Referred To Contact Radiology Diagnoses Visit for screening mammogram Procedures XANDER UNRULY DIGITAL SCREEN BILATERAL XANDER UNRULY DIGITAL SCREEN SELF REFERRAL W OR WO CAD BILATERAL Noreen Moran, DO [address] [place] [address] Referral ID Status Reason Start Date Expiration Date Visits Re quested Visits Authorized [id number] Closed 04/10/2024 04/10/2025 1 1 Specialty Diagnoses / Procedures Referred By Contac t Referred To Contact Diagnoses Pelvic pain Pelvic pain [R10.2] Procedures HI LAPS TOTAL HYSTERECT 250 GM/< W/RMVL TUBE/OVARY HYSTERECTOMY VAGINAL LAPAROSCOPIC ROBOTIC ASSISTED- POSS TAYLOR SALPINGECTOMY LAP, POSS LAP COLPOPEXY Noreen Moran, DO [address] [place] [address] [facility] [address] [place] [address] Referral ID Status Reason Start Date Expiration Date Visits Re quested Visits Authorized [id number] 1 1 Care Teams (unrecognized sec tion and content) Team Status: Active Member Role Status Dates KOLE Puga Primary Care Provider Active Team Status: Inactive Member Role Status Dates KOLE Puga Primary Care Provider Active Start: June 13, 2024 End: June 13, 2024 Figueroa Manning MD Attending Provider Active Star t: June 13, 2024 End: June 13, 2024 Team Status: Inactive Member Role Status Dates KOLE Puga Primary Care Provider Active Figueroa Manning MD Attending Provider Active Director Product Development Relationship Specialty Start Date End Date Suze Saldaña [address] [place] [address] PCP - General 10/19/21 Director Product Development Relationship Specialty Start Date End Date Suze Saldaña APRN - CNP [address] [place] [id number] PCP - General 10/19/21 Director Product Development Relationship Specialty Start Date End Date Suze Saldaña APRN - CNP [address] [place] [id number] PCP - General 10/19/21 Goals (unrecognized section and content) Goals may be documented in a n alternate section INFORMATION SOURCE (unrecogn ized section and content) DATE CREATED AUTHOR 02/05/2022 [facility] DATE CREATED AUTHOR AUTHOR'S ORGANIZ ATION 05/11/2024 [facility] DATE CREATED AUTHOR AUTHOR'S ORGANIZ ATION 06/16/2024 [facility] DATE CREATED AUTHOR AUTHOR'S ORGANIZ ATION 06/19/2024 [facility] Ordered Prescriptions (unrec ognized section and content) Prescription Sig Dispensed Refills Start Date End Da te HYDROcodone-acetaminophe n (NORCO) 5-325 MG per tabletIndications:Postop erative pain Take 1 tablet by mouth every 6 hours as needed for Pain for up to 5 days. Intended supply: 5 days. Take lowest dose possible to manage pain Max Daily Amount: 4 tablets 10 tablet 05/05/2024 05/10/2024 ketorolac (TORADOL) 10 MG tablet Take 1 tablet by mouth every 6 hours as needed for Pain 20 tablet 05/05/2024 05/05/2025 Scheduled Active and Recently Administ ered Medications (unrecognized section and content) Medication Order 05/03/2024 05/04/2024 05/05/2024 acetaminophen (TYLENOL) tablet 650 mg (COMPLETED) 650 mg, Oral, ONCE, 1 dose, On Sun05/05/24 at 1100, Maximum dose of acetaminophen is 4000 mg from all sources in 24 hours., Pre-op (day of surgery) 1057 (Given - Provid er: Daisy Hong RN) ceFAZolin (ANCEF) 2000 mg in 20 mL IV syringe (COMPLETED) 2,000 mg, IntraVENous, MAILROOM ASSISTANT TO O.R., 1 dose, On Sun05/05/24 at 1100, Antimicrobial Indications: Surgical Prophylaxis, Administer within 1 hour prior to incision. Administer over 5 mins., Pre-op (day of surgery) 1308 (Given - Provid er: Jerome Gavin RN - Comment: in OR) dimenhyDRINATE (DRAMAMINE) tablet 50 mg (COMPLETED) 50 mg, Oral, ONCE, 1 dose, On Sun05/05/24 at 1100, Pre-op (day of surgery) 1058 (Given - Provid er: Daisy Hong RN) enoxaparin (LOVENOX) injection 40 mg (COMPLETED) 40 mg, SubCUTAneous, ONCE, 1 dose, On Sun05/05/24 at 1100, Indication of Use: Prophylaxis-DVT/PE, Administer by deep subCUTAneous injection with pt lying down. Alternate injection sites on abdominal wall. Do not rub site after injection. Check with provider prior to any invasive procedure., Pre-op (day of surgery) 1057 (Given - Provid er: Daisy Hong RN) famotidine (PEPCID) 20 mg in sodium chloride (PF) 0.9 % 10 mL injection (COMPLETED) 20 mg, IntraVENous, ONCE, 1 dose, On Sun05/05/24 at 1100, Administer over 2 minutes., Pre-op (day of surgery) 1058 (Given - Provid er: Daisy Hong RN) gabapentin (NEURONTIN) capsule 400 mg (COMPLETED) 400 mg, Oral, ONCE, 1 dose, On Sun05/05/24 at 1100, Pre-op (day of surgery) 1058 (Given - Provid er: Daisy Hong RN) sodium chloride flush 0.9 % injection 5-40 mL 5-40 mL, IntraVENous, EVERY 12 HOURS SCHEDULED (2 times per day), First dose on Sun05/05/24 at 1100, Until Discontinued, For Line Patency: Peripheral IV = 5 mL; Midline or Central Line = 10 mL/lumen. If following IV push medication, administer flush at same rate as the IV push. Flush volume is determined by type of infusion therapy being given. For non-viscous solutions use: Peripheral IV = 5 mL Midline or Central Line = 10 mL/lumen For viscous solutions (i.e. blood components, parenteral nutrition, contrast media, or after obtaining blood sample) use: Peripheral IV = 10 mL Midline or Central Line = 20 mL/lumen, Pre-op (day of surgery) 1100 (Due)2100 (Due) sodium chloride flush 0.9 % injection 5-40 mL 5-40 mL, IntraVENous, EVERY 12 HOURS SCHEDULED (2 times per day), First dose on Sun05/05/24 at 2100, Until Discontinued, For Line Patency: Peripheral IV = 5 mL; Midline or Central Line = 10 mL/lumen. If following IV push medication, administer flush at same rate as the IV push. Flush volume is determined by type of infusion therapy being given. For non-viscous solutions use: Peripheral IV = 5 mL Midline or Central Line = 10 mL/lumen For viscous solutions (i.e. blood components, parenteral nutrition, contrast media, or after obtaining blood sample) use: Peripheral IV = 10 mL Midline or Central Line = 20 mL/lumen, PACU only 2100 (Due) Continuous Medication Order 05/03/2024 05/04/2024 05/05/2024 lactated ringers infusion IntraVENous, at 125 mL/hr, CONTINUOUS, Starting on Sun05/05/24 at 1100, Pre-op (day of surgery) 1310 (New Bag - Prov ider: Velasquez Wagoner, SEARCH PLANNER - DATA PROCESSING SPECIALIST) PRN Medication Order 05/03/2024 05/04/2024 05/05/2024 0.9 % sodium chloride infusion IntraVENous, at 5-250 mL/hr, PRN, if patient receiving piggyback infusions and maintenance fluids are not ordered, Starting on Sun05/05/24 at 1031, For piggyback infusion, administer at same rate as piggyback for a total of 25 mL. Enter 25 mL into dose field and piggyback rate into rate field of order. If piggyback is infusing at a rate less than 100 mL/hr, enter 25 mL into dose field and 100 mL/hr into rate field of order., Pre-op (day of surgery) 0.9 % sodium chloride infusion IntraVENous, at 5-250 mL/hr, PRN, if patient receiving piggyback infusions and maintenance fluids are not ordered, Starting on Sun05/05/24 at 1449, For piggyback infusion, administer at same rate as piggyback for a total of 25 mL. Enter 25 mL into dose field and piggyback rate into rate field of order. If piggyback is infusing at a rate less than 100 mL/hr, enter 25 mL into dose field and 100 mL/hr into rate field of order., PACU only fentaNYL (SUBLIMAZE) injection 50 mcg 50 mcg, IntraVENous, EVERY 5 MIN PRN, 2 doses, Starting on Sun05/05/24 at 1449, Until Discontinued, Pain Severe (7-10), For Phase I. If Phase II oral narcotics have been administered in the last 60 minutes, do not administer IV narcotics unless specifically approved by provider., PACU only 1505 (Given - Provid er: Olivia An RN) hydrALAZINE (APRESOLINE) injection 10 mg(Linked Group 1) 10 mg, IntraVENous, EVERY 15 MIN PRN, 2 doses, Starting on Sun05/05/24 at 1449, Until Discontinued, for SBP greater than 180 mmHg for 2 consecutive measurements taken from different sites, If heart rate is greater than 60 bpm, hold hydralazine and use labetalol if ordered, otherwise contact provider. Inform provider if SBP is still greater than 180 mmHg 10 minutes after second antihypertensive dose is administered., PACU only labetalol (NORMODYNE;TRANDATE) injection 10 mg(Linked Group 1) 10 mg, IntraVENous, EVERY 15 MIN PRN, 2 doses, Starting on Sun05/05/24 at 1449, Until Discontinued, High Blood Pressure, for SBP greater than 180 mmHg for 2 consecutive measurements taken from different sites., If heart rate is 60 bpm or less hold labetalol and use hydralazine if ordered, otherwise contact provider. Inform provider if SBP is still greater than 180 mmHg, 10 minutes after second antihypertensive dose is administered., PACU only naloxone 0.4 mg in 10 mL sodium chloride syringe IntraVENous, PRN, Opioid Reversal, Starting on Sun05/05/24 at 1449, PRN if respiratory rate is less than 6/min and patient is difficult to arouse then notify physician STAT. Mix 9 mL of sodium chloride 0.9% with 0.4 mg (1 mL) of naloxone (NARCAN) in 10 mL syringe. (Note: dilution is 0.04 mg/mL) Give 0.08 mg (2 mL of special dilution), slow IV push, repeat up to 0.4 mg (10 mL) or until patient is responsive to physical stimulation and respiratory rate is equal to or greater than 6 breaths/min. Continue to observe, if no response within 3 minutes of administration of 0.4 mg (10 mL) total, repeat dose (0.4 mg as administered previously). Concentration 0.04 mg/mL, PACU only ondansetron (ZOFRAN) injection 4 mg (COMPLETED) 4 mg, IntraVENous, ONCE PRN, 1 dose, Starting on Sun05/05/24 at 1449, Until Sun05/05/24 at 1541, Nausea, Initial antiemetic therapy., PACU only 1541 (Given - Provid er: Olivia An RN) oxyCODONE (ROXICODONE) immediate release tablet 10 mg (COMPLETED)(Linked Group 2) 10 mg, Oral, PRN, 1 dose, Starting on Sun05/05/24 at 1449, Until Sun05/05/24 at 1555, Pain Severe (7-10), PHASE II, PACU only 1555 (Given - Provid er: Olivia An RN) prochlorperazine (COMPAZINE) injection 5 mg 5 mg, IntraVENous, ONCE PRN, 1 dose, Starting on Sun05/05/24 at 1449, Until Sun05/06/24 at 1449, Nausea, Secondary antiemetic therapy., PACU only sodium chloride flush 0.9 % injection 5-40 mL 5-40 mL, IntraVENous, PRN, Starting on Sun05/05/24 at 1031, Until Discontinued, Line Care, After every IV line use, For Line Patency: Peripheral IV = 5 mL; Midline or Central Line = 10 mL/lumen. If following IV push medication, administer flush at same rate as the IV push. Flush volume is determined by type of infusion therapy being given. For non-viscous solutions use: Peripheral IV = 5 mL Midline or Central Line = 10 mL/lumen For viscous solutions (i.e. blood components, parenteral nutrition, contrast media, or after obtaining blood sample) use: Peripheral IV = 10 mL Midline or Central Line = 20 mL/lumen, Pre-op (day of surgery) sodium chloride flush 0.9 % injection 5-40 mL 5-40 mL, IntraVENous, PRN, Starting on Sun05/05/24 at 1449, Until Discontinued, Line Care, After every IV line use, For Line Patency: Peripheral IV = 5 mL; Midline or Central Line = 10 mL/lumen. If following IV push medication, administer flush at same rate as the IV push. Flush volume is determined by type of infusion therapy being given. For non-viscous solutions use: Peripheral IV = 5 mL Midline or Central Line = 10 mL/lumen For viscous solutions (i.e. blood components, parenteral nutrition, contrast media, or after obtaining blood sample) use: Peripheral IV = 10 mL Midline or Central Line = 20 mL/lumen, PACU only Linked Groups Order Group 1: labetalol (NORMODYNE;TRANDATE) injection 10 mgJump to med 10 mg, IntraVENous, EVERY 15 MIN PRN, 2 doses, Starting on Sun05/05/24 at 1449, Until Discontinued, High Blood Pressure, for SBP greater than 180 mmHg for 2 consecutive measurements taken from different sites., If heart rate is 60 bpm or less hold labetalol and use hydralazine if ordered, otherwise contact provider. Inform provider if SBP is still greater than 180 mmHg, 10 minutes after second antihypertensive dose is administered., PACU only Or hydrALAZINE (APRESOLINE) injection 10 mgJump to med 10 mg, IntraVENous, EVERY 15 MIN PRN, 2 doses, Starting on 05/05/24 at 1449, Until Discontinued, for SBP greater than 180 mmHg for 2 consecutive measurements taken from different sites, If heart rate is greater than 60 bpm, hold hydralazine and use labetalol if ordered, otherwise contact provider. Inform provider if SBP is still greater than 180 mmHg 10 minutes after second antihypertensive dose is administered., PACU only Group 2: oxyCODONE (ROXICODONE) immediate release tablet 5 mg (COMPLETED) 5 mg, Oral, PRN, 1 dose, Starting on Sun05/05/24 at 1449, Until Sun05/05/24 at 1555, Pain Moderate (4-6), PHASE II, PACU only Or oxyCODONE (ROXICODONE) immediate release tablet 10 mg (COMPLETED)Jump to med 10 mg, Oral, PRN, 1 dose, Starting on Sun05/05/24 at 1449, Until 05/05/24 at 1555, Pain Severe (7-10), PHASE II, PACU only FOR RECORDS PERTAINING TO PATIENTS WHO ARE [...] BE BASED ON THE PRIMARY CLINICAL RECORDS. [facility]. provides no warranty or guarantee of the accuracy or completeness of information in this document.
[2024-06-25 11:45] LABS: Basophils Percent Auto 0.5 % (0.2-2.0); Eosinophils Absolute Auto 0.1 10^3/uL (0.0-0.7); Hematocrit 38.1 % (36.0-48.0); Hemoglobin 12.8 g/dL (12.0-16.0); Immature Granulocytes Abs Auto 0.02 10^3/uL (0.00-0.03); Immature Granulocytes Pct Auto 0.3 % (0.0-0.5); Lymphocytes Absolute Auto 2.1 10^3/uL (1.2-3.8); Lymphocytes Percent Auto 34.7 % (20.5-60.0); Mean Corpuscular HGB Conc 33.6 g/dL (29.9-35.2); Mean Corpuscular Volume 86.2 fL (81.0-99.0); Mean Platelet Volume 9.4 fL (9.5-13.5); Monocytes Absolute Auto 0.3 10^3/uL (0.3-0.8); Monocytes Percent Auto 5.1 % (1.7-12.0); Neutrophils Absolute Auto 3.4 10^3/uL (1.4-6.5); Neutrophils Percent Auto 58.4 % (43.0-75.0); Platelet Count 269 10^3/uL (150-450); Red Blood Count 4.42 10^6/uL (4.20-5.40); Red Cell Distribution Width 12.4 % (11.0-15.0); White Blood Count 5.9 10^3/uL (4.0-11.0)
[2024-06-25 12:07] LABS: Estimated Average Glucose 111 mg/dL; Glycohemoglobin A1C 5.5 % (4.5-6.2)
[2024-06-25 12:27] LABS: Alanine Aminotransferase 47 U/L (14-59); Albumin Level 3.8 g/dL (3.4-5.0); Alkaline Phosphatase 73 U/L (46-116); Anion Gap 12.3; Aspartate Amino Transferase 18 U/L (15-37); BUN Creatinine Ratio 19.8; Bilirubin Total 0.3 mg/dL (0.2-1.0); Carbon Dioxide 28.9 mmol/L (21.0-32.0); Chloride 102 mmol/L (98-107); Chol HDL Ratio 5.4; Cholesterol 275 mg/dL (<=200); Estimated GFR (African America >60 (>=60 mL/min/1.73m^2); Estimated GFR (Non-African Ame >60 (>=60 mL/min/1.73m^2); Free T3 2.84 pg/mL (2.18-3.98); Globulin 3.7 g/dL; Glucose 98 mg/dL (74-106); HDL Cholesterol 51 mg/dL (40-60); Potassium 4.2 mmol/L (3.5-5.1); Sodium 139 mmol/L (136-145); Thyroid Stimulating Hormone 1.615 uIU/mL (0.358-3.740); Total Protein 7.5 g/dL (6.4-8.2); Triglycerides 175 mg/dL (<=150)
[2024-06-26 05:07] LABS: Insulin 32.7 uIU/mL (2.6-24.9)
== END 2024-06-25 11:17 | disposition home or self-care (01) ==
PROVIDERS: PCP Nurse Practitioner Family; Visit Provider Nurse Practitioner Family
DX: E78.5 Hyperlipidemia, unspecified (principal)
CPT/HCPCS: 36415; 80053; 80061; 82306; 83036; 83525; 83540; 84436; 84443; 84481; 85025

== ENCOUNTER 2024-12-23 11:03 | Outpatient (RCR) | payer MEDICARE, SELFPAY | END 2025-02-18 15:07 | disposition home or self-care (01) | LOC: PT 11:03 | PROVIDERS: PCP Nurse Practitioner Family; Visit Provider Nurse Practitioner Family | DX: M25.552 Pain in left hip (principal) | CPT/HCPCS: 97110; 97112; 97113; 97161 ==